=== PATIENT | female | born 1950 | race Caucasian/White ===

== ENCOUNTER 2017-04-20 05:30 | Emergency (ER) | payer MEDICARE ==
[~2017-04-20 05:30] MED LIST: ASPI-555 PO; CINA60TA PO; CLIN300C9 PO; HUM10VIA6 SQ; INSLAN SQ; IRON PO; LORA10CA9 PO; MEGE40TA PO; MYCO500T5 PO; PRED2.5T PO; TACR1CAP10 PO
[2017-04-20] MEDS ORDERED: HYOSCYAMINE SULFATE 0.125 MG TAB.SUBL SL ONE (05:47)
[2017-04-20 06:01] LABS: BASOPHILS % (AUTO) 0.2 % (0.0-5.0); EOSINOPHILS % (AUTO) 0.5 % (0.0-8.0); HEMATOCRIT 40.4 % (36-48); LYMPHOCYTES % (AUTO) 22.3 % (21.0-51.0); MEAN CORPUSCULAR HEMOGLOBIN 29.1 pg (27.0-33.0); MEAN CORPUSCULAR HGB CONC 32.8 g/dL (32.0-36.0); MEAN CORPUSCULAR VOLUME 88.7 fL (79-99); MONOCYTES % (AUTO) 12.1 % (3.0-13.0); NEUTROPHILS % (AUTO) 64.9 % (40.0-77.0); PLATELET COUNT (AUTO) 236 K/uL (130-400); RED BLOOD CELL COUNT(AUTO) 4.55 MIL/uL (4.00-5.50); RED CELL DISTRIBUTION WIDTH 15.5 % (11.0-15.5); WHITE BLOOD COUNT (AUTO) 9.3 K/uL (4.8-10.8)
[2017-04-20 06:12] LABS: APPEARANCE,URINE SLIGHTLY CLOUDY (CLEAR); BILIRUBIN,URINE Negative (NEGATIVE); COLOR,URINE Dark Yellow (YELLOW); GLUCOSE, URINE (UA) Negative (NEGATIVE); KETONES,URINE Trace mg/dL (NEGATIVE); LEUKOCYTE ESTERASE ,URINE Trace (NEGATIVE); NITRATE,URINE Negative (NEGATIVE); OCCULT BLOOD,URINE Negative (NEGATIVE); PROTEIN,URINE Trace (NEGATIVE); UROBILINOGEN,URINE 0.2 mg/dL (0.2-1.0)
[2017-04-20 06:15] LABS: CREATININE 2.5 mg/dL (0.5-1.5); POTASSIUM 3.8 mmol/L (3.5-5.1)
[2017-04-20 06:21] LABS: ALBUMIN 4.1 g/dL (3.5-5.0); BILIRUBIN,DIRECT 0.1 mg/dL (0.0-0.3); BILIRUBIN,TOTAL 0.4 mg/dL (0.2-1.0); TOTAL PROTEIN, SERUM 7.4 g/dL (6.0-8.3)
[2017-04-20 07:09] LABS: BACTERIA,URINE Rare /HPF (None Seen); SQUAMOUS EPITHELIAL CELL,UR Rare /LPF (0-2); WBC,URINE 0-1 /HPF (0-1)
== END 2017-04-20 07:23 | disposition home or self-care (01) ==
LOC: EDH 05:30
DX: K57.30 Diverticulosis of large intestine without perforation or abscess without bleeding (principal); E11.22 Type 2 diabetes mellitus with diabetic chronic kidney disease; N18.9 Chronic kidney disease, unspecified; Z94.0 Kidney transplant status; Z98.890 Other specified postprocedural states
CPT/HCPCS: 36415; 80048; 80076; 81001; 83690; 85025; 96360

== ENCOUNTER 2017-04-22 15:25 | Inpatient (IN) | payer MEDICARE ==
[~2017-04-22] VITALS: Ht 154.9 cm; Wt 40.7 kg
[2017-04-22 16:05] LABS: BASOPHILS % (AUTO) 0.5 % (0.0-5.0); EOSINOPHILS % (AUTO) 0.1 % (0.0-8.0); HEMATOCRIT 39.5 % (36-48); LYMPHOCYTES % (AUTO) 13.1 % (21.0-51.0); MEAN CORPUSCULAR HGB CONC 33.1 g/dL (32.0-36.0); MEAN CORPUSCULAR VOLUME 87.5 fL (79-99); MONOCYTES % (AUTO) 4.3 % (3.0-13.0); PLATELET COUNT (AUTO) 253 K/uL (130-400); RED BLOOD CELL COUNT(AUTO) 4.51 MIL/uL (4.00-5.50); RED CELL DISTRIBUTION WIDTH 15.4 % (11.0-15.5); WHITE BLOOD COUNT (AUTO) 8.1 K/uL (4.8-10.8)
[2017-04-22 16:21] LABS: ALBUMIN 4.3 g/dL (3.5-5.0); BILIRUBIN,TOTAL 0.4 mg/dL (0.2-1.0); CREATININE 4.1 mg/dL (0.5-1.5); POTASSIUM 3.8 mmol/L (3.5-5.1); TOTAL PROTEIN, SERUM 7.8 g/dL (6.0-8.3)
[2017-04-22 16:53] LABS: APPEARANCE,URINE Cloudy (CLEAR); BILIRUBIN,URINE Negative (NEGATIVE); COLOR,URINE Dark Yellow (YELLOW); GLUCOSE, URINE (UA) Negative (NEGATIVE); KETONES,URINE Trace mg/dL (NEGATIVE); LEUKOCYTE ESTERASE ,URINE Moderate (NEGATIVE); NITRATE,URINE Negative (NEGATIVE); OCCULT BLOOD,URINE Negative (NEGATIVE); PROTEIN,URINE POS 2+ (NEGATIVE); UROBILINOGEN,URINE 0.2 mg/dL (0.2-1.0)
[2017-04-22 17:00] LABS: ABG BASE EXCESS -20.1 mmol/L (-2.0-3.0); ABG HCO3 5.6 mmol/L (21.0-28.0); ABG OXYGEN SATURATION 97.2 % (95.0-99.0); ABG PCO2 < 18 mmHg (32-45)
[2017-04-22 17:05] LABS: BACTERIA,URINE Rare /HPF (None Seen); RBC,URINE None Seen /HPF (0-1)
[2017-04-22 17:29] LABS: OCCULT BLOOD STOOL SINGLE ONLY POSITIVE (NEGATIVE)
[2017-04-22] MEDS ORDERED: SODIUM CHLORIDE 0.9% 1000ML 2,000 ML IV ONE (18:23)
[2017-04-22 18:48] LABS: CREATININE,URINE RANDOM 382 mg/dL (30-135); SODIUM,URINE RANDOM 6 mmol/l (40-220)
[2017-04-22 22:08] VITALS: BP 123/66
[2017-04-22 22:15] VITALS: BP 124/72
[2017-04-22 22:30] VITALS: BP 122/65
[2017-04-22 22:45] VITALS: BP 122/62
[2017-04-22 23:00] VITALS: BP 111/62
[2017-04-22 23:30] VITALS: BP 107/65
[2017-04-23] VITALS (17 sets, daily range): BP systolic 91–115; BP diastolic 45–65
[2017-04-23 07:35] LABS: BASOPHILS % (AUTO) 0.6 % (0.0-5.0); EOSINOPHILS % (AUTO) 0.8 % (0.0-8.0); HEMATOCRIT 32.5 % (36-48); LYMPHOCYTES % (AUTO) 20.8 % (21.0-51.0); MEAN CORPUSCULAR HEMOGLOBIN 29.5 pg (27.0-33.0); MEAN CORPUSCULAR HGB CONC 33.9 g/dL (32.0-36.0); MEAN CORPUSCULAR VOLUME 87.2 fL (79-99); MONOCYTES % (AUTO) 11.7 % (3.0-13.0); NEUTROPHILS % (AUTO) 66.1 % (40.0-77.0); NUCLEATED RED BLOOD CELLS 0.1 % (0.0-0.19); PLATELET COUNT (AUTO) 212 K/uL (130-400); RED BLOOD CELL COUNT(AUTO) 3.72 MIL/uL (4.00-5.50); RED CELL DISTRIBUTION WIDTH 15.1 % (11.0-15.5); WHITE BLOOD COUNT (AUTO) 7.1 K/uL (4.8-10.8)
[2017-04-23] MEDS ORDERED: PHARMACY COMMUNICATION MISC SCH (08:00)
[2017-04-23] MEDS ORDERED: 1/2 NORMAL SALINE 1,000 ML IV SCH (08:00)
[2017-04-23 08:09] LABS: ALBUMIN 3.3 g/dL (3.5-5.0); BILIRUBIN,TOTAL 0.5 mg/dL (0.2-1.0); CREATININE 3.1 mg/dL (0.5-1.5); POTASSIUM 3.7 mmol/L (3.5-5.1); TOTAL PROTEIN, SERUM 6.1 g/dL (6.0-8.3)
[2017-04-23] MEDS ORDERED: SODIUM BICARB 8.4% 50ML SYRING 75 MEQ in 1/2 NORMAL SALINE 1,000 ML IVP SCH (08:15)
[2017-04-23] MEDS: TACROLIMUS 1 MG CAPSULE PO SCH ×2 (08:19→20:54)
[2017-04-23] MEDS ORDERED: TACROLIMUS 1 MG CAPSULE PO SCH (09:00)
[2017-04-23] MEDS ORDERED: MYCOPHENOLATE MOFETIL 250 MG CAPSULE PO SCH ×2 (09:00→21:00)
[2017-04-23] MEDS ORDERED: SODIUM CHLORIDE 0.9% 1000ML 1,000 ML IV ONE (14:45)
[2017-04-23] MEDS: METRONIDAZOLE 500 MG TABLET PO SCH ×2 (15:09→21:36)
[2017-04-23 19:05] LABS: CREATININE 2.4 mg/dL (0.5-1.5); POTASSIUM 3.4 mmol/L (3.5-5.1)
[2017-04-23] MEDS: MYCOPHENOLATE MOFETIL 250 MG CAPSULE PO SCH (20:53)
[2017-04-23] MEDS: SODIUM BICARB 8.4% 50ML SYRING 75 MEQ in 1/2 NORMAL SALINE 1,000 ML IVP SCH (21:36)
[2017-04-24] MEDS: SODIUM BICARB 8.4% 50ML SYRING 75 MEQ in 1/2 NORMAL SALINE 1,000 ML IVP SCH ×2 (02:15→11:36)
[2017-04-24 03:30] VITALS: BP 101/53
[2017-04-24 03:54] LABS: BASOPHILS % (AUTO) 0.5 % (0.0-5.0); EOSINOPHILS % (AUTO) 0.8 % (0.0-8.0); HEMATOCRIT 26.3 % (36-48); LYMPHOCYTES % (AUTO) 19.1 % (21.0-51.0); MEAN CORPUSCULAR HEMOGLOBIN 30.3 pg (27.0-33.0); MEAN CORPUSCULAR HGB CONC 35.5 g/dL (32.0-36.0); MEAN CORPUSCULAR VOLUME 85.4 fL (79-99); MONOCYTES % (AUTO) 12.2 % (3.0-13.0); NEUTROPHILS % (AUTO) 67.4 % (40.0-77.0); PLATELET COUNT (AUTO) 202 K/uL (130-400); RED BLOOD CELL COUNT(AUTO) 3.08 MIL/uL (4.00-5.50); WHITE BLOOD COUNT (AUTO) 6.4 K/uL (4.8-10.8)
[2017-04-24 04:18] LABS: ALBUMIN 2.8 g/dL (3.5-5.0); BILIRUBIN,TOTAL 0.8 mg/dL (0.2-1.0); CREATININE 1.8 mg/dL (0.5-1.5); TOTAL PROTEIN, SERUM 5.1 g/dL (6.0-8.3)
[2017-04-24] MEDS: METRONIDAZOLE 500 MG TABLET PO SCH ×2 (05:43→14:38)
[2017-04-24] MEDS ORDERED: POTASSIUM CHLORIDE 10% ELIXIR 20 MEQ/15 ML UDCUP PO PRN (06:45)
[2017-04-24] MEDS ORDERED: LIDOCAINE HCL-MPF 1% 2ML VIAL IVP PRN (06:45)
[2017-04-24] MEDS ORDERED: POTASSIUM CHLORIDE 20MEQ/100ML 100 ML IV PRN (06:45)
[2017-04-24 07:25] VITALS: BP 107/49
[2017-04-24] MEDS: TACROLIMUS 1 MG CAPSULE PO SCH ×2 (07:27→21:24)
[2017-04-24] MEDS: MYCOPHENOLATE MOFETIL 250 MG CAPSULE PO SCH ×2 (07:28→21:24)
[2017-04-24] MEDS: POTASSIUM CHLORIDE 20 MEQ ERTAB PO PRN ×3 (09:21→14:38)
[2017-04-24 11:22] VITALS: BP 110/54
[2017-04-24 16:23] VITALS: BP 110/58
[2017-04-24 19:36] VITALS: BP 120/69
[2017-04-24] MEDS: LOPERAMIDE HCL 2 MG CAP PO SCH (21:23)
[2017-04-24] MEDS: LACTOBACILLUS RHAMNOSUS GG 1 EACH CAP.SPRINK PO SCH (21:24)
[2017-04-24 23:22] VITALS: BP 116/73
[2017-04-25] MEDS: METRONIDAZOLE 500 MG TABLET PO SCH ×3 (00:54→14:06)
[2017-04-25] MEDS: SODIUM BICARB 8.4% 50ML SYRING 75 MEQ in 1/2 NORMAL SALINE 1,000 ML IVP SCH (00:54)
[2017-04-25 03:35] VITALS: BP 108/58
[2017-04-25 04:38] LABS: HEMATOCRIT 28.1 % (36-48); MEAN CORPUSCULAR HEMOGLOBIN 29.6 pg (27.0-33.0); MEAN CORPUSCULAR HGB CONC 34.5 g/dL (32.0-36.0); MEAN CORPUSCULAR VOLUME 85.8 fL (79-99); PLATELET COUNT (AUTO) 213 K/uL (130-400); RED BLOOD CELL COUNT(AUTO) 3.27 MIL/uL (4.00-5.50); RED CELL DISTRIBUTION WIDTH 14.8 % (11.0-15.5); WHITE BLOOD COUNT (AUTO) 6.4 K/uL (4.8-10.8)
[2017-04-25 04:53] LABS: CREATININE 1.3 mg/dL (0.5-1.5); POTASSIUM 3.2 mmol/L (3.5-5.1); TOTAL PROTEIN, SERUM 5.6 g/dL (6.0-8.3)
[2017-04-25] MEDS: POTASSIUM CHLORIDE 20 MEQ ERTAB PO PRN (06:04)
[2017-04-25 07:00] VITALS: BP 96/70
[2017-04-25] MEDS: LOPERAMIDE HCL 2 MG CAP PO SCH ×2 (09:45→14:06)
[2017-04-25] MEDS: LACTOBACILLUS RHAMNOSUS GG 1 EACH CAP.SPRINK PO SCH ×2 (09:45→14:06)
[2017-04-25] MEDS: MYCOPHENOLATE MOFETIL 250 MG CAPSULE PO SCH (09:46)
[2017-04-25] MEDS: TACROLIMUS 1 MG CAPSULE PO SCH (09:46)
[2017-04-25 11:00] VITALS: BP 105/63
== END 2017-04-25 16:55 | disposition home or self-care (01) | DRG 371 ==
LOC: EDH 15:25 → EDHIP 18:19 → 2CH 22:34 → 2AH 04-23 15:44
PROVIDERS: ADMIT Internal Medicine; ATTEND Internal Medicine
DX: A04.72 Enterocolitis due to Clostridium difficile, not specified as recurrent (principal); N18.6 End stage renal disease; N17.9 Acute kidney failure, unspecified; E87.2 Acidosis; E11.22 Type 2 diabetes mellitus with diabetic chronic kidney disease; I12.0 Hypertensive chronic kidney disease with stage 5 chronic kidney disease or end stage renal disease; M32.14 Glomerular disease in systemic lupus erythematosus; I72.2 Aneurysm of renal artery; N25.81 Secondary hyperparathyroidism of renal origin; K86.1 Other chronic pancreatitis; Z94.0 Kidney transplant status; Z68.1 Body mass index [BMI] 19.9 or less, adult; R63.4 Abnormal weight loss; R74.8 Abnormal levels of other serum enzymes; R79.89 Other specified abnormal findings of blood chemistry; M32.9 Systemic lupus erythematosus, unspecified; K57.90 Diverticulosis of intestine, part unspecified, without perforation or abscess without bleeding; K80.20 Calculus of gallbladder without cholecystitis without obstruction; E86.0 Dehydration; B96.81 Helicobacter pylori [H. pylori] as the cause of diseases classified elsewhere; D64.9 Anemia, unspecified; E78.5 Hyperlipidemia, unspecified; Z87.11 Personal history of peptic ulcer disease; Z82.49 Family history of ischemic heart disease and other diseases of the circulatory system; Z83.3 Family history of diabetes mellitus; Z86.010 Personal history of colon polyps; Z90.710 Acquired absence of both cervix and uterus
CPT/HCPCS: 36415; 36600; 74176; 76700; 76770; 80048; 80053; 80076; 80197; 81001; 82150; 82270; 82330; 82435; 82570; 82803; 82947; 82948; 83605; 83690; 84132; 84295; 84300; 84540; 85018; 85025; 85027; 87046; 87177; 87205; 87324; 92610; 93306; 96360; 99291; J3480; J3490; J7030; J7507; J7517